=== PATIENT | male | born 1950 | race Caucasian/White ===

== ENCOUNTER 2018-12-09 14:53 | Emergency (ER) | payer MEDICARE ==
[~2018-12-09 14:53] MED LIST: Iopamidol 370 76% 125 ML VIAL FS ONE
[2018-12-09 16:13] LABS: #Basophils 0.1 thou/uL (0.0-0.2); #Eosinphils 0.1 thou/uL (0.0-0.7); #Lymphocytes 1.8 thou/uL (1.20-3.40); #Monocytes 0.4 thou/uL (0.11-0.59); #Neutrophils 3.3 thou/uL (1.40-6.50); %Basophils 1.5 % (0.0-1.0); %Eosinophils 2.4 % (0.0-10.0); %Lymphocytes 31.7 % (21.0-51.0); %Monocytes 6.2 % (0.0-10.0); %Neutrophils 58.2 % (42.0-75.0); Hemoglobin 16.9 g/dL (14.0-18.0); Mean Corpuscular HGB CONC 32.2 g/dL (32.0-36.0); Mean Corpuscular Hemoglobin 30.7 pg (27.0-31.0); Mean Corpuscular Volume 95.3 fL (78.0-98.0); Mean Platelet Volume 8.8 fL (7.4-10.4); Platelet Count 204 thou/uL (130-400); RBC Distribution Width 11.9 % (11.5-14.5); White Blood Cell (WBC) Count 5.6 thou/uL (4.8-10.8)
--- NOTE | 2018-12-09 16:22 | RAD ---
Exam: Chest one view HISTORY:Dizziness. Weakness. Comparison: None FINDINGS: Cardiac silhouette: Normal Aorta: Unremarkable Pulmonary vessels: Normal Costophrenic angles: Clear LUNGS: No masses or consolidation. Pneumothorax: None Osseous abnormalities: None IMPRESSION: No acute cardiopulmonary process.
[2018-12-09 16:28] LABS: ALT (SGPT) 18 U/L (8-55); AST (SGOT) 17 U/L (5-34); Alkaline Phosphatase 62 U/L (40-150); Anion Gap 14 mmol/L (10-20); BUN (Urea Nitrogen) 12 mg/dL (8.4-25.7); Bilirubin, Total 0.8 mg/dL (0.2-1.2); Calc. Creatinine Clearance 0 mL/min (70-130); Calcium 9.2 mg/dL (7.8-10.44); Carbon Dioxide 26 mmol/L (23-31); Chloride 107 mmol/L (98-107); Estimated GFR-MDRD 71; Glucose 99 mg/dL (80-115); Lipase 14 U/L (8-78); Potassium 4.3 mmol/L (3.5-5.1); Sodium 143 mmol/L (136-145)
[2018-12-09 16:40] LABS: Bilirubin Negative (Negative); Blood, Urine Negative (Negative); Clarity Clear (Clear); Glucose, Urine (Dipstick) Negative (Negative); Leukocyte Negative (Negative); Nitrite Negative (Negative); Protein, Urine (Dipstick) Negative (Neg-Trace)
--- NOTE | 2018-12-09 17:51 | CT ---
CT OF BRAIN PERFORMED WITHOUT CONTRAST ENHANCEMENT: 12/09/18 HISTORY: Altered mental status, syncope. Ventricular and cisternal system shows some mild atrophy. There is no signs of intracerebral hemorrha ge or extra-axial fluid collections. Mastoid air cells and visualized sinuses are clear. 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 IMPRESSION: No acute intracranial abnormalities. POS: [facility]
--- NOTE | 2018-12-09 19:18 | CT ---
CT angiogram head performed with contrast enhancement with 3-D reconstructions HISTORY: Right-sided weakness. COMPARISON: None. FINDINGS: The contrast bolus is adequate. There is poor contrast opacification at the level of the ca vernous portions of the internal carotid arteries and faint opacification the vertebral basilar system, this appears to be related to timing of the bolus. There are atherosclerotic changes in the cavernous portions of both internal carotid arteries. The an terior and middle cerebral arteries and their branches appear unremarkable. No thrombus identified. The vertebral basilar system is grossly unremarkable. IMPRESSION: Unremarkable CT angiography of head.
[2018-12-09] MEDS ORDERED: Aspirin Chewable 81 MG TAB ONE (19:56)
== END 2018-12-09 20:39 | disposition short-term general hospital (02) ==
LOC: MADERS 14:53
DX: R53.1 Weakness (principal); R42 Dizziness and giddiness
CPT/HCPCS: 36415; 70450; 70496; 71045; 80053; 81003; 83690; 83880; 84484; 85025; 93005; Q9967

== ENCOUNTER 2019-03-12 11:16 | Outpatient (CLI) | payer MEDICARE ==
--- NOTE | 2019-03-12 12:24 | RAD ---
LEFT ANKLE 3 VIEWS: Date: 03/12/19 HISTORY: Fall 6 days ago. Ankle pain. FINDINGS: There is soft tissue swelling adjacent to the lateral malleolus. No fracture is identified. There are some arthritic changes of the ankle. Calcaneal spurs are noted. IMPRESSION: No evidence of fracture. POS: [facility]
--- NOTE | 2019-03-12 13:26 | RAD ---
SIX VIEWS OF LUMBAR SPINE: HISTORY: Status post fall, 6 days ago. Pain. FINDINGS: On the open-mouth projection, lateral masses of C1 and C2 articulate appropriately. The tip of the od ontoid process is partially obscured. The base of the odontoid process is intact. On the AP projection, no malalignment. Of the lateral projection, predental space is normal. There is no prevertebral soft tissue swelling. Cervical spine vertebral body height is maintained. No fracture. Interspinous distances are present maintained. Moderate degenerative change at C5-C6. Limited evaluation of the cervicothoracic junction on swimmer's view. Upon extension and flexion, there is persistent straightening of cervical lordosis. IMPRESSION: 1. Limited evaluation of the cervicothoracic junction. 2. Moderate degenerative change at C5-C6. 2. Straightening of normal cervical lordosis. Findings may be due to muscle spasm. If there is concer n for ligamentous injury, consider MRI. CODE T Transcribed Date/Time: 03/12/2019 1:32 PM
== END 2019-03-12 11:17 | disposition home or self-care (01) ==
LOC: MADRAD 11:16
PROVIDERS: ATTEND Nurse Practitioner Family
DX: M25.572 Pain in left ankle and joints of left foot (principal); M54.2 Cervicalgia; S93.492A Sprain of other ligament of left ankle, initial encounter; S93.432A Sprain of tibiofibular ligament of left ankle, initial encounter; M47.812 Spondylosis without myelopathy or radiculopathy, cervical region; Z91.81 History of falling
CPT/HCPCS: 72052